=== PATIENT | female | born 1960 | race Two or more races ===

== ENCOUNTER 2025-04-07 12:25 | Inpatient (IN) | payer MEDICAID, OTHER ==
[~2025-04-07] VITALS: Ht 165.1 cm; Wt 72.6 kg
--- NOTE | 2025-04-07 13:19 | ED.PDOC ---
History of Present Illness HPI Comments 64 y/o Farsi-speaking F is BIBA with son and daughter from private residence for c/c nonradiating, left sided chest pain, shortness of breath, generalized weakness, and paleness. Per EMS reports, patient endorses on sudden, unprovoked, and atraumatic onset of symptoms, while taking a shower, this morning, at around 1100 prior to calling son and daughter for assistance. Pain was reported to have been sharp in quality and a 10/10 in severity prior to improving to a 5/10 after being given 324mg ASA by son prior to EMS arrival. Significant history of HLD and HTN. No endorsement of any recent known sick contact, prior ailments, travel, medication changes, or further pertinent history or events, with the exception of previous hospital visit in [place] on 04/02/25 for chest pain; findings from said visit was commented to have been benign prior to discharging the patient. Patient denies on having any cough, congestion, nausea, vomiting, fever, chills, or further associated symptoms. Chief Complaint: Chest Pain Time Seen by MD: 12:40 Reviewed Notes: Nurses Notes, Recessing Machine Operator Notes, Medications, Allergies Allergies: Coded Allergies: NO KNOWN ALLERGIES (Unverified , 04/07/25) Information Source: Patient, Relative, Emergency Med Personnel Mode of Arrival: EMS Severity: Moderate Timing: Hours Duration: Since onset Prehospital treatment: 12 Lead EKG, Analytical Chemist Past Medical History PAST MEDICAL HISTORY: High Lipids, HTN Surgical History: Denies all surgeries PERSONNEL ASSOCIATE History: Denies all PERSONNEL ASSOCIATE Hx Family History Family History: Unknown Social History Smoker: Non-Smoker Alcohol: Denies ETOH Use Drugs: Denies Drug Use Lives In: Home All Other Systems: Reviewed and Negative (Comprehensive review of systems are negative unless otherwise stated in HPI) Physical Exam General Appearance: Moderate Distress HEENT: Normal ENT Inspection, Pharynx Normal, TMs Normal Neck: Full Range of Motion, Non-Tender, Normal, Normal Inspection Respiratory: Chest Non-Tender, Lungs Clear, No Accessory Muscle Use, No Respiratory Distress, Normal Breath Sounds Cardiovascular: No Edema, No JVD, No Murmur, No Gallop, Normal Peripheral Pulses, Regular Rate/Rhythm Breast Exam: Deferred Gastrointestinal: No Organomegaly, Non Tender, No Pulsatile Mass, Normal Bowel Sounds, Soft Genitalia: Deferred Pelvic: Deferred Rectal: Deferred Extremities: No calf tenderness, Normal capillary refill, Normal inspection, Normal range of motion, Non-tender, No pedal edema Musculoskeletal : Apperance: Normal Neurologic: Alert, malt liquors sales representative II-XII nml as Tested, No Motor Deficits, Normal Affect, Normal Mood, No Sensory Deficits Cerebellar Function: NOT DONE Reflexes: NOT DONE Skin: Dry, Normal Color, Warm Peripheral Pulses: 3+ Radial (R), 3+ Radial (L) Lymphatic: No Adenopathy Was a procedure done? Was a procedure done?: No EKG EKG : Pulse Rate (adult): 72 [place]: Normal Cardiac Rhythm: NSR Block: None Hypertrophy: None ST: Normal Differential Dx Considerations may include: DC, PE, ACS, URI, pneumonia, angina, anxiety, gastritis, among others X-Ray, Labs, Meds, VS Vital Signs Date Time Temp Pulse Resp B/P (MAP) Pulse Ox O2 Delivery O2 Flow Rate FiO2 04/07/25 13:19 72 04/07/25 12:30 98.0 67 16 131/78 98 98.0 04/07/25 12:26 72 Lab Test 04/07/25 14:29 04/07/25 14:27 04/07/25 13:03 Range/Units Troponin I High Sensitivity 211 *H 172 *H </=34 ng/L POC Glucose 150 H 70-106 mg/dl White Blood Count 5.6 4.4-10.8 10^3/uL Red Blood Count 4.43 4.0-5.20 10^6/uL Hemoglobin 12.8 12.2-16.2 g/dL Hematocrit 38.5 36.0-46.0 % Mean Corpuscular Volume 86.9 80.0-100.0 fL Mean Corpuscular Hemoglobin 28.8 28.0-32.0 pg Mean Corpuscular Hemoglobin Concent 33.2 32.0-36.0 g/dL Red Cell Distribution Width 13.6 11.8-14.3 % Platelet Count 254 140-450 10^3/uL Mean Platelet Volume 9.3 6.9-10.8 fL Neutrophils (%) (Auto) 75.8 37.0-80.0 % Lymphocytes (%) (Auto) 18.2 10.0-50.0 % Monocytes (%) (Auto) 4.8 0.0-12.0 % Eosinophils (%) (Auto) 0.9 0.0-7.0 % Basophils (%) (Auto) 0.3 0.0-2.0 % Neutrophils # (Auto) 4.2 1.6-8.6 10 ^3/uL Lymphocytes # (Auto) 1.0 0.4-5.4 10 ^3/uL Monocytes # (Auto) 0.3 0-1.3 10 ^3/uL Eosinophils # (Auto) 0 0-0.8 10 ^3/uL Basophils # (Auto) 0 0-0.2 10 ^3/uL Nucleated Red Blood Cells 0.1 % Sodium Level 141 136-145 mmol/L Potassium Level 4.0 3.5-5.1 mmol/L Chloride Level 106 98-107 mmol/L Carbon Dioxide Level 24 20-31 mmol/L Anion Gap 11 5-15 Blood Urea Nitrogen 11 9-23 mg/dL Creatinine 0.77 0.550-1.02 mg/dL Glomerular Filtration Rate Calc 85 >90 mL/min BUN/Creatinine Ratio 14.3 10.0-20.0 Serum Glucose 154 H 74-106 mg/dL Calcium Level 9.4 8.7-10.4 mg/dL Current Medications Medications (Trade) Dose Ordered Sig/Dwight Route Start Time Stop Time Status Last Admin Sodium Chloride 1,000 ml @ 1,000 mls/hr Q1H ONCE IV 04/07/25 13:00 04/07/25 13:59 DC 04/07/25 14:30 Patient alert. Came in because of dizziness. No neurological deficits. Vitals stable. Cardiac marker elevated. EKG reviewed does not show any acute changes. Blood sugar elevated. Reviewed her notes from her previous visit at [facility]. Establish intravenous access. Was given fluids. Was given Lovenox. Explained to the patient. Continue monitoring. Time of 1ST Reevaluation: 16:14 Reevaluation 1ST: Improved Patient Education/Counseling: Diagnosis, Treatment Family Education/Counseling: Diagnosis, Treatment SEPSIS Sepsis Screen Date sepsis recognized/suspect: Apr 07, 2025 Time Sepsis recognized/suspect: 1229 Recent Procedure: No On Antibiotic Therapy: No Respiratory Rate >20: No Heart Rate >90: No Temp<36 C (96.8 F) or >38.3 C: No SBP <90 or MAP <65 mmHG: No New Acute Mental Status Change: No Is the patient on CPAP, BIPAP,: No Physician Orders Electrocardigram (04/07/25 12:45) Electrocardigram (04/07/25 13:45) Electrocardigram (04/07/25 15:45) Urinalysis (04/07/25 12:47) Troponin-I Hs (04/07/25 15:47) Vital Signs Date Time Temp Pulse Resp B/P (MAP) Pulse Ox O2 Delivery O2 Flow Rate FiO2 04/07/25 13:19 72 04/07/25 12:30 98.0 67 16 131/78 98 98.0 04/07/25 12:26 72 Laboratory Tests Test 04/07/25 13:03 White Blood Count 5.6 10^3/uL (4.4-10.8) Medications Medications Dose Ordered Sig/Dwight Route Start Time Stop Time Status Last Admin Dose Admin Sodium Chloride 1,000 ml @ 1,000 mls/hr Q1H ONCE IV 04/07/25 13:00 04/07/25 13:59 DC 04/07/25 14:30 Departure 1 Departure Time of Disposition: 16:15 Impression: Primary Impression: Uncontrolled diabetes mellitus Qualified Codes: E13.65 - Other specified diabetes mellitus with hyperglycemia Additional Impression: Demand ischemia Disposition: ADMITTED INPATIENT Admit to: Med Surg Condition: Guarded Critical Care Note Critical Care Time?: Yes (90 min-critical care time only) Stability Stability form required: No Heart Score Heart Score: Heart Score Response (Comments) Value History Slightly Suspicious 0 EKG Normal 0 Age >65 2 Risk Factors 1 or 2 risk factors 1 Troponin >3 x's Normal limit 2 Total 5 I personally scribed for AJAY MCDOWELL MD ([email or web address]) on 04/07/25 at 13:19. Electronically submitted by Nii Howard ([email or web address]). AJAY MCDOWELL MD Apr 07, 2025 13:19
[2025-04-07 14:03] LABS: Hematocrit 38.5 % (36.0-46.0); Hemoglobin 12.8 g/dL (12.2-16.2); Mean Corpuscular Hemoglobin 28.8 pg (28.0-32.0); Mean Corpuscular Volume 86.9 fL (80.0-100.0); Nucleated Red Blood Cells % 0.1 %
[2025-04-07 14:12] LABS: Chloride 106 mmol/L (98-107); Potassium 4.0 mmol/L (3.5-5.1); Sodium 141 mmol/L (136-145)
[2025-04-07 14:13] LABS: Anion Gap 11 (5-15); Calcium 9.4 mg/dL (8.7-10.4); Carbon Dioxide 24 mmol/L (20-31)
[2025-04-07 14:18] LABS: BUN/Creatinine Ratio 14.3 (10.0-20.0); Blood Urea Nitrogen 11 mg/dL (9-23)
[2025-04-07 14:27] LABS: Glucose 154 mg/dL (74-106)
[2025-04-07] MEDS: SODIUM CHLORIDE 0.9% 1,000 ML IV ONE (14:30)
[2025-04-07] MEDS: ENOXAPARIN SOD 80 MG/0.8ML SYRINGE SC ONE (16:40)
[2025-04-07 16:47] VITALS: PULSE 74; RESP 20; O2SAT 94
[2025-04-07 20:22] VITALS: PULSE 80; RESP 20; O2SAT 97
[2025-04-07] MEDS ORDERED: HYDROcodone-ACET 5/325MG TAB PO PRN (21:30)
[2025-04-07] MEDS ORDERED: DEXTROSE (50%) 50ML SYRG IV PRN (21:30)
[2025-04-07] MEDS ORDERED: DOCUSATE SOD 100 MG CAP PO PRN (21:30)
[2025-04-07] MEDS ORDERED: ACETAMINOPHEN 325 MG TAB PO PRN (21:30)
[2025-04-07] MEDS ORDERED: hydrALAZINE HCL 20 MG/ML VL IV PRN (21:30)
[2025-04-07] MEDS ORDERED: ONDANSETRON HCL 4 MG/2 ML VIAL IV PRN (21:30)
[2025-04-07] MEDS: ATORVASTATIN 20 MG TAB PO SCH (22:00)
[2025-04-07] MEDS: SODIUM CHLOR 0.9% PF (SALINE LOCK) 10ML VIAL/SYR IV SCH (22:00)
[2025-04-07] MEDS: METOPROLOL TARTRATE 25 MG TAB PO SCH (22:00)
--- NOTE | 2025-04-07 22:06 | DVHHP2 ---
History of Present Illness Reason for Visit: Acute chest pain History of Present Illness The patient is a 64-year-old female with past medical history of hypertension and hyperlipidemia who presented to [facility] ED with complaint of chest pain. Patient reports she has been experiencing sudden left-sided chest pa in, rating 10/10 numeric scale, sharp sensation, associated with generalized weakness, shortness of breaths, paleness, getting worse that prompted this visit. Patient was seen and evaluated in the ED, laboratory data shows WBC 5.6, platelets 254, sodium 141, potassium 4.0, BUN 11, creatinine 0.77, GFR 85, glucose 154, calcium 9.4, troponin 172 trending up, blood pressure 135/77, heart rate 80, temperature 98.1 F, O2 saturation 97% on room air. Please see medication orders section in the computer. On my assessment, patient denies chest pain at this moment, no cough, no congestion, no nausea, no vomiting, fever, chills, or further associated symptoms. Patient was admitted for further evaluation and medical management. Past Medical History High Lipids, HTN, DM Past Surgical History Denies all surgeries Family History Reviewed, noncontributory to the management of this case. Past Social History The patient lives at home, denies smoking, alcohol or illicit drugs abuse. Review of Systems Constitutional: Yes: Weakness; No: Fever, Chills, Sweats, Malaise, Other Eyes: No: Pain, Vision change, Conjunctivae inflammation, Eyelid inflammation, Other, Redness ENT: No: Ear pain, Ear discharge, Nose pain, Nose discharge, Nose congestion, Mouth pain, Mouth swelling, Throat pain, Throat swelling, Other Respiratory: No: Cough, Dry, Shortness of breath, SOB with excertion, Wheezing, Hemoptysis, Pleuritic Pain, Sputum, Wheezing, Other Cardiovascular: Chest Pain; No: Palpitations, Orthopnea, Paroxysmal Noc. Dyspnea, Edema, Lt Headedness, Other Gastrointestinal: No: Nausea, Vomiting, Abdominal Pain, Diarrhea, Constipation, Melena, Hematochezia, Other Genitourinary: No Dysuria, No Frequency, No Incontinence, No Hematuria, No Retention, No Other Musculoskeletal: No: other, neck pain, shoulder pain, arm pain, back pain, hand pain, leg pain, foot pain Skin: No: Rash, Lesions, Jaundice, Bruising, Other Neurological: No: Weakness, Numbness, Incoordination, Change in speech, Confusion, Seizures, Other Allergies: Coded Allergies: NO KNOWN ALLERGIES (Unverified , 04/07/25) Medications Current Medications Medications Dose Ordered Sig/Dwight Route Start Time Stop Time Status Last Admin Dose Admin Atorvastatin Calcium 40 mg HS PO 04/07/25 22:00 Enoxaparin Sodium 80 mg Q12HR SC 04/08/25 10:00 Diagnostic Test (Pha) 1 strip IQ4HR 04/08/25 00:00 Insulin Human Regular IQ4HR SC 04/08/25 00:00 Dextrose 50 ml UD PRN IV 04/07/25 21:30 Sodium Chloride 10 ml Q8HR IV 04/07/25 22:00 Acetaminophen/ Hydrocodone Bitart 1 tab Q4HP PRN PO 04/07/25 21:30 Ondansetron HCl 4 mg Q4HP PRN IV 04/07/25 21:30 Docusate Sodium 100 mg BIDPRN PRN PO 04/07/25 21:30 Acetaminophen 650 mg Q6HP PRN PO 04/07/25 21:30 Metoprolol Tartrate 25 mg BID PO 04/07/25 22:00 Hydralazine HCl 10 mg Q6HP PRN IV 04/07/25 21:30 Exam Vital Signs Vital Signs Date Time Temp Pulse Resp B/P (MAP) Pulse Ox O2 Delivery O2 Flow Rate FiO2 04/07/25 20:22 98.1 80 20 135/77 (96) 97 98.1 04/07/25 20:22 Room Air* 0 21 General Appearance: Alert, Oriented X3, Cooperative, No acute distress HEENT: Atraumatic, PERRLA, EOMI, Mucous membr. moist/pink Respiratory: Normal air movement Cardiovascular: Regular rate, Normal S1, Normal S2, No murmurs Abdominal: Normal bowel sounds, Soft, No tenderness, No hepatospenomegaly, No masses Extremities: No clubbing, No cyanosis, No edema, Normal pulses, No tenderness/swelling Skin: No rashes, No significant lesion Neuro: Normal speech, Normal tone, Sensation intact, Cranial nerves 3-12 NL, Reflexes 2+, Other (Generalized weakness) Psych/Mental Status: Mental status NL, Mood NL Labs/Xrays Labs Test 04/07/25 21:34 04/07/25 14:27 04/07/25 13:03 Range/Units Troponin I High Sensitivity 255 *H </=34 ng/L POC Glucose 150 H 70-106 mg/dl White Blood Count 5.6 4.4-10.8 10^3/uL Red Blood Count 4.43 4.0-5.20 10^6/uL Hemoglobin 12.8 12.2-16.2 g/dL Hematocrit 38.5 36.0-46.0 % Mean Corpuscular Volume 86.9 80.0-100.0 fL Mean Corpuscular Hemoglobin 28.8 28.0-32.0 pg Mean Corpuscular Hemoglobin Concent 33.2 32.0-36.0 g/dL Red Cell Distribution Width 13.6 11.8-14.3 % Platelet Count 254 140-450 10^3/uL Mean Platelet Volume 9.3 6.9-10.8 fL Neutrophils (%) (Auto) 75.8 37.0-80.0 % Lymphocytes (%) (Auto) 18.2 10.0-50.0 % Monocytes (%) (Auto) 4.8 0.0-12.0 % Eosinophils (%) (Auto) 0.9 0.0-7.0 % Basophils (%) (Auto) 0.3 0.0-2.0 % Neutrophils # (Auto) 4.2 1.6-8.6 10 ^3/uL Lymphocytes # (Auto) 1.0 0.4-5.4 10 ^3/uL Monocytes # (Auto) 0.3 0-1.3 10 ^3/uL Eosinophils # (Auto) 0 0-0.8 10 ^3/uL Basophils # (Auto) 0 0-0.2 10 ^3/uL Nucleated Red Blood Cells 0.1 % Sodium Level 141 136-145 mmol/L Potassium Level 4.0 3.5-5.1 mmol/L Chloride Level 106 98-107 mmol/L Carbon Dioxide Level 24 20-31 mmol/L Anion Gap 11 5-15 Blood Urea Nitrogen 11 9-23 mg/dL Creatinine 0.77 0.550-1.02 mg/dL Glomerular Filtration Rate Calc 85 >90 mL/min BUN/Creatinine Ratio 14.3 10.0-20.0 Serum Glucose 154 H 74-106 mg/dL Hemoglobin A1c 5.9 H <5.7 % A1C Calcium Level 9.4 8.7-10.4 mg/dL SEPSIS Sepsis Screen Date sepsis recognized/suspect: Apr 07, 2025 Time Sepsis recognized/suspect: 2029 Recent Procedure: No On Antibiotic Therapy: No Respiratory Rate >20: No Heart Rate >90: No Temp<36 C (96.8 F) or >38.3 C: No SBP <90 or MAP <65 mmHG: No New Acute Mental Status Change: No Is the patient on CPAP, BIPAP,: No Physician Orders Atorvastatin (Lipitor) (04/07/25 22:00) * Cardiology Consult (04/07/25 21:18) Glucose Blood (Accu-Chek Comfort Curve T (04/08/25 00:00) Insulin R (Human) (Insulin R) (04/08/25 00:00) Dextrose 50% Syringe (04/07/25 21:30) Allergies (04/07/25 21:18) Code Status (04/07/25 21:18) Sodium Chloride Lock (Saline Lock Ns) (04/07/25 22:00) Oxygen Per Hour (04/07/25 21:18) Hydrocodone-Acet 5/325mg Tab ([place] 5/32 (04/07/25 21:30) Ondansetron Hcl (Zofran) (04/07/25 21:30) Docusate Sodium Capsule (Colace Capsule) (04/07/25 21:30) Complete Blood Count (04/08/25 04:00) Comprehensive Metabolic Panel (04/08/25 04:00) Cardiac Diet-2gna,Lofat,Lochol (04/08/25 Breakfast) Condition: Serious (04/07/25 21:18) Acetaminophen Tablet (Tylenol Tablet) (04/07/25 21:30) Bedrest With Bathroom Privileg (04/07/25 21:18) Sequential Compression Device (04/07/25 ) Metoprolol Tartrate Tablet (Lopressor Ta (04/07/25 22:00) Hydralazine Injection (Apresoline Inject (04/07/25 21:30) Troponin-I Hs (04/08/25 00:23) Enoxaparin Sodium (Lovenox) (04/08/25 10:00) Vital Signs Date Time Temp Pulse Resp B/P (MAP) Pulse Ox O2 Delivery O2 Flow Rate FiO2 04/07/25 20:22 98.1 80 20 135/77 (96) 97 98.1 04/07/25 20:22 80 20 97 Room Air* 0 21 04/07/25 18:38 70 18 135/69 (91) 97 04/07/25 18:19 73 04/07/25 16:47 74 20 94 Room Air* 0 21 Laboratory Tests Test 04/07/25 13:03 White Blood Count 5.6 10^3/uL (4.4-10.8) Medications Medications Dose Ordered Sig/Dwight Route Start Time Stop Time Status Last Admin Dose Admin Enoxaparin Sodium 80 mg ONCE ONCE SC 04/07/25 16:30 04/07/25 16:31 DC 04/07/25 16:40 80 MG Sodium Chloride 1,000 ml @ 1,000 mls/hr Q1H ONCE IV 04/07/25 13:00 04/07/25 13:59 DC 04/07/25 14:30 1,000 MLS/HR Assessment/Plan Assessment/Plan Uncontrolled diabetes mellitus Demand ischemia Elevated troponin Other specified diabetes mellitus with hyperglycemia Plan 1. Admit to telemetry unit 2. Breathing treatment 3. Pain control management 4. Management of fluids and electrolytes 5. Consultation for Cardiology 6. Diagnostic tests chest x-ray 7. DVT prophylaxis-on Lovenox 8. Repeat labs CBC, CMP in a.m. 9. Continue with current medical management 10. Treatment plan discussed with patient and RN. Patient verbalized understanding. Plan discussed with: Patient, Other (RN) My Orders Orders - ELAINE DIAZ DNP Procedure Category Date Status Time Atorvastatin (Lipitor) PHA 04/07/25 In Process 22:00 * Cardiology Consult CONS 04/07/25 Transmitted 21:18 Glucose Blood PHA 04/08/25 In Process (Accu-Chek Comfort 00:00 Insulin R (Human) PHA 04/08/25 In Process (Insulin R) 00:00 Dextrose 50% Syringe PHA 04/07/25 In Process 21:30 Allergies BLADE 04/07/25 In Process 21:18 Code Status CODE 04/07/25 Transmitted 21:18 Sodium Chloride Lock PHA 04/07/25 In Process (Saline Lock Ns) 22:00 Oxygen Per Hour RT 04/07/25 Transmitted 21:18 Hydrocodone-Acet PHA 04/07/25 In Process 5/325mg Tab ([place] 21:30 Ondansetron Hcl PHA 04/07/25 In Process (Zofran) 21:30 Docusate Sodium PHA 04/07/25 In Process Capsule (Colace 21:30 Complete Blood Count LAB 04/08/25 Verified 04:00 Comprehensive LAB 04/08/25 Verified Metabolic Panel 04:00 Cardiac DIET 04/08/25 Transmitted Diet-2gna,Lofat,Lochol Breakfast Condition: Serious BLADE 04/07/25 In Process 21:18 Acetaminophen Tablet PHA 04/07/25 In Process (Tylenol Tablet) 21:30 Bedrest With Bathroom BLADE 04/07/25 In Process Privileg 21:18 Sequential BLADE 04/07/25 In Process Compression Device Metoprolol Tartrate PHA 04/07/25 In Process Tablet (Lopressor Ta 22:00 Hydralazine Injection PHA 04/07/25 In Process (Apresoline Inject 21:30 Troponin-I Hs LAB 04/08/25 Verified 00:23 Enoxaparin Sodium PHA 04/08/25 In Process (Lovenox) 10:00 Problem List: (1) Uncontrolled diabetes mellitus (2) Demand ischemia (3) Elevated troponin (4) Other specified diabetes mellitus with hyperglycemia Date of Service: Apr 07, 2025 Billing Provider: ELAINE DIAZ DNP Common Visit Codes: [id number] INP/OBS CARE (HIGH) ELAINE DIAZ DNP Apr 07, 2025 22:06
[2025-04-07] MEDS ORDERED: MORPHINE SULFATE INJ 2 MG/ml SYRG IV PRN (22:15)
[2025-04-07] MEDS ORDERED: NITROGLYCERIN 0.4 MG SL TAB SL PRN (22:15)
[2025-04-08] VITALS (9 sets, daily range): BP systolic 118–140; BP diastolic 55–83; PULSE 59–72; RESP 17–18; TEMP 97.6–97.9; O2SAT 94–97
[2025-04-08] MEDS: InsuLIN REG 1unit/0.01ml Soln (100units/ml) SC SCH
[2025-04-08] MEDS: ACCU-CHEK COMFORT CURVE STRIP VI SCH (00:18)
[2025-04-08] MEDS ORDERED: ATOR40TA52 PO (02:15)
[2025-04-08] MEDS ORDERED: ASPI81CH74 PO (02:15)
[2025-04-08] MEDS ORDERED: AMLO1TAB22 PO (02:15)
[2025-04-08 04:10] LABS: Urine Protein, UAD Negative (Negative)
[2025-04-08 05:45] LABS: Hematocrit 34.4 % (36.0-46.0); Hemoglobin 12.1 g/dL (12.2-16.2); Mean Corpuscular Hemoglobin 29.6 pg (28.0-32.0); Mean Corpuscular Volume 84.6 fL (80.0-100.0); Nucleated Red Blood Cells % 0.1 %
[2025-04-08 05:58] LABS: Alanine Aminotransferase 18 U/L (7-40); Albumin 4.1 g/dL (3.2-4.8); Alkaline Phosphatase 60 U/L (46-116); Anion Gap 11 (5-15); BUN/Creatinine Ratio 10.5 (10.0-20.0); Calcium 9.3 mg/dL (8.7-10.4); Carbon Dioxide 24 mmol/L (20-31); Glucose 103 mg/dL (74-106); Potassium 3.9 mmol/L (3.5-5.1); Sodium 143 mmol/L (136-145); Total Protein 6.7 g/dL (5.7-8.2)
[2025-04-08 05:59] LABS: Bilirubin, Total 0.4 mg/dL (0.2-1.0)
[2025-04-08 06:09] LABS: Blood Urea Nitrogen 8 mg/dL (9-23); Chloride 108 mmol/L (98-107)
[2025-04-08] MEDS: ENOXAPARIN SOD 80 MG/0.8ML SYRINGE SC SCH (09:47)
--- NOTE | 2025-04-08 10:07 | DVHINCON2 ---
Date Seen: Apr 08, 2025 Referring Physician Rose Reason for Consultation Chest Pain, Positive troponins History of Present Illness 64-year-old female with PMH for HTN and HLD presents to the hospital with chest pain. Patient states that symptoms started approximately 1 week prior in [place] playing volleyball with family member and started having some chest pain ended up being admitted to [facility] for which per family endorses patient underwent full cardiac workup with EKG echo and coronary angiogram. Patient was cleared cardiac peterson and came back home. Apparently patient was in the shower when she again felt symptoms of chest pain some shortness of breath and came to the hospital. Upon evaluation patient found to have elevated troponins trending 172, 211, 394, 255, 161. EKG reviewed and shows sinus rhythm at 72 beats per minute with anterolateral T-wave abnormality. Denies any palpitations, fevers, nausea, vomiting, or illnesses. Past Medical History As stated above Past Surgical History Endorses coronary angiogram 04/03/2025 with nno obstructive CAD Family History: CABG G8 MOTHER, G8 BROTHER FH: prostate carcinoma G8 FATHER, FH: total abdominal hysterectomy and bilateral salpingo-oophorectomy 17 CHILD Social History Denies alcohol, tobacco, or illicit drug Allergies: Coded Allergies: NO KNOWN ALLERGIES (Unverified , 04/07/25) Home Meds Reported Medications Aspirin (Aspirin 81 Low Dose) 81 Mg Chw, 81 MG PO DAILY, TAB.CHEW 04/08/25 Amlodipine Besylate (Amlodipine Besylate) 5 Mg Tab, 2.5 MG PO DAILY for 30 Days, MG 04/08/25 Atorvastatin Calcium (ATORVASTATIN CALCIUM) 40 Mg Tab, 40 TAB PO DAILY, #30 TAB 5 Refills 04/08/25 Current Medications Current Medications Medications (Trade) Dose Ordered Sig/Dwight Route PRN Reason Start Time Stop Time Status Last Admin Atorvastatin Calcium (Lipitor) 40 mg HS PO 04/07/25 22:00 04/07/25 22:00 Enoxaparin Sodium (Lovenox) 80 mg Q12HR SC 04/08/25 10:00 04/08/25 09:47 Diagnostic Test (Pha) (Accu-Chek Comfort Curve T) 1 strip IQ4HR 04/08/25 00:00 04/08/25 00:18 Insulin Human Regular (InsuLIN R) IQ4HR SC 04/08/25 00:00 Dextrose 50 ml UD PRN IV Blood Sugar LESS THAN 60 04/07/25 21:30 Sodium Chloride (Saline Lock Ns) 10 ml Q8HR IV 04/07/25 22:00 04/08/25 05:31 Acetaminophen/ Hydrocodone Bitart ([place] 5/325MG Tab) 1 tab Q4HP PRN PO MODERATE PAIN (4-6 PAIN SCALE) 04/07/25 21:30 Ondansetron HCl (Zofran) 4 mg Q4HP PRN IV NAUSEA / VOMITING 04/07/25 21:30 Docusate Sodium (Colace Capsule) 100 mg BIDPRN PRN PO FOR CONSTIPATION 04/07/25 21:30 Acetaminophen (Tylenol Tablet) 650 mg Q6HP PRN PO PAIN SCALE 1-3 OR TEMP>100.4 04/07/25 21:30 Metoprolol Tartrate (Lopressor Tablet) 25 mg BID PO 04/07/25 22:00 04/08/25 09:48 Hydralazine HCl (Apresoline Injection) 10 mg Q6HP PRN IV SBP>150 04/07/25 21:30 Nitroglycerin (Ntrostat Sublingual) 0.4 mg Q5MINP PRN SL FOR CHEST PAIN 04/07/25 22:15 Morphine Sulfate 2 mg Q30M PRN IV FOR CHEST PAIN 04/07/25 22:15 Review of Systems Constitutional: No: Fever, Chills, Sweats, Weakness, Malaise, Other Eyes: No: Pain, Vision change, Conjunctivae inflammation, Eyelid inflammation, Other, Redness ENT: No: Ear pain, Ear discharge, Nose pain, Nose discharge, Nose congestion, Mouth pain, Mouth swelling, Throat pain, Throat swelling, Other Respiratory: No: Cough, Dry, Shortness of breath, SOB with exertion, Wheezing, Hemoptysis, Pleuritic Pain, Sputum, Wheezing, Other Cardiovascular: ; No: Chest Pain Palpitations, Orthopnea, Paroxysmal Noc. Dyspnea, Edema, Lt Headedness, Other Gastrointestinal: No: Nausea, Vomiting, Abdominal Pain, Diarrhea, Constipation, Melena, Hematochezia, Other Genitourinary: No Dysuria, No Frequency, No Incontinence, No Hematuria, No Retention, No Other Musculoskeletal: neck pain; No: other, shoulder pain, arm pain, back pain, hand pain, leg pain, foot pain Skin: No: Rash, Lesions, Jaundice, Bruising, Other Neurological: Other (Dizziness, headache.); No: Weakness, Numbness, Incoo rdination, Change in speech, Confusion, Seizures Vital Signs Vital Signs Date Time Temp Pulse Resp B/P (MAP) Pulse Ox O2 Delivery O2 Flow Rate FiO2 04/08/25 09:48 69 129/72 04/08/25 09:00 97.6 18 96 97.6 04/08/25 00:54 Room Air* 0 21 Physical Exam General appearance: Patient is well-developed, well-nourished, in no acute distress. HEENT: Exam shows: Normocephalic, atraumatic, PERRLA, EOMI Neck: Supple, no bruits Chest: Equal chest excursion bilaterally. Breath sounds normal-no rales or wheezes. Heart: Rhythm: Regular rate; no murmur or gallop Abdomen: Exam shows: Soft, nontender, nondistended Musculoskeletal: No clubbing, no cyanosis, no lower extremity edema Dermatology: Skin warm, moist. Neurological: Exam shows: Alert and oriented x4, normal speech Available prior records, labs, EKG, rhythm strips reviewed and interpreted Labs/Diagnostic Data Labs Test 04/08/25 04:29 04/08/25 03:00 04/08/25 00:42 04/07/25 14:27 Range/Units White Blood Count 5.2 4.4-10.8 10^3/uL Red Blood Count 4.07 4.0-5.20 10^6/uL Hemoglobin 12.1 L 12.2-16.2 g/dL Hematocrit 34.4 #L 36.0-46.0 % Mean Corpuscular Volume 84.6 80.0-100.0 fL Mean Corpuscular Hemoglobin 29.6 28.0-32.0 pg Mean Corpuscular Hemoglobin Concent 35.0 32.0-36.0 g/dL Red Cell Distribution Width 13.0 11.8-14.3 % Platelet Count 236 140-450 10^3/uL Mean Platelet Volume 9.2 6.9-10.8 fL Neutrophils (%) (Auto) 52.8 37.0-80.0 % Lymphocytes (%) (Auto) 37.4 10.0-50.0 % Monocytes (%) (Auto) 7.4 0.0-12.0 % Eosinophils (%) (Auto) 2.0 0.0-7.0 % Basophils (%) (Auto) 0.4 0.0-2.0 % Neutrophils # (Auto) 2.8 1.6-8.6 10 ^3/uL Lymphocytes # (Auto) 2.0 0.4-5.4 10 ^3/uL Monocytes # (Auto) 0.4 0-1.3 10 ^3/uL Eosinophils # (Auto) 0.1 0-0.8 10 ^3/uL Basophils # (Auto) 0 0-0.2 10 ^3/uL Nucleated Red Blood Cells 0.1 % Sodium Level 143 136-145 mmol/L Potassium Level 3.9 3.5-5.1 mmol/L Chloride Level 108 H 98-107 mmol/L Carbon Dioxide Level 24 20-31 mmol/L Anion Gap 11 5-15 Blood Urea Nitrogen 8 L 9-23 mg/dL Creatinine 0.76 0.550-1.02 mg/dL Glomerular Filtration Rate Calc 86 >90 mL/min BUN/Creatinine Ratio 10.5 10.0-20.0 Serum Glucose 103 74-106 mg/dL Calcium Level 9.3 8.7-10.4 mg/dL Total Bilirubin 0.4 0.2-1.0 mg/dL Aspartate Amino Transferase (AST) 17 13-40 U/L Alanine Aminotransferase (ALT) 18 7-40 U/L Alkaline Phosphatase 60 46-116 U/L Total Protein 6.7 5.7-8.2 g/dL Albumin 4.1 3.2-4.8 g/dL Urine Color Light-yellow Yellow Urine Clarity Clear Clear Urine pH 6.0 5.0-9.0 Urine Specific [place] 1.017 1.001-1.035 Urine Protein Negative Negative Urine Ketones Negative Negative Urine Blood 1+ H Negative /uL Urine Nitrite Negative Negative Urine Bilirubin Negative Negative Urine Urobilinogen Normal Negative mg/dL Urine Leukocyte Esterase Negative Negative /uL Urine RBC 10 0 - 4 /hpf Urine Microscopic WBC 11 H 0-5 /HPF Urine Squamous Epithelial Cells Few <5 /hpf Urine Bacteria None seen None Seen /hpf Urine Glucose Normal Normal mg/dL Troponin I High Sensitivity 161 *H </=34 ng/L POC Glucose 150 H 70-106 mg/dl Test 04/07/25 13:03 Range/Units Hemoglobin A1c 5.9 H <5.7 % A1C Assessment * Chest pain, positive troponin - likely demand ischemia. EKG with T-wave abnormality anterolaterally. Continue aspirin and statin. Given patient endorses having recent angiogram with no obstructive CAD recommend continue medical management at this time, blood pressure control. Will repeat echo. * HTN - continue home dose amlodipine, continue trending. * HLD - statin Case Discussed with Dr Aguiar. Continue medical management for now, check echo. Critical care, time spent: 40 minutes This medical document was created using an electronic medical record system with voice recognition software and computerized dictation system. Although this document has been carefully reviewed, there might still be some phonetic and typographical errors. Occasional wrong-word or ``sound-alike substitutions may have occurred due to the inherent limitations of voice recognition software. These areas are purely typographical due to imperfections of the software programs and do not reflect any compromise in the patient's medical care. Please read the chart carefully and recognize, using context, where these substitutions have occurred. Thank you for allowing me to participate in the management of this patient. The treatment plan was discussed with and agreed upon by patient/family including requesting consultants and ordering of imaging/procedures. Plan discussed with: Patient, Son NYHA Physical activity limitations: Class2(Slight)fatigue,sob Date of Service: Apr 08, 2025 Billing Provider: CHRISTINA GUTIERRES Cardiology Common Codes: 58232-[id number] INP/OBS CARE (High), [id number] CARE 30-74 MIN CHRISTINA GUTIERRES Apr 08, 2025 10:07
--- NOTE | 2025-04-08 11:16 | DVHPN2 ---
Subjective The patient is seen and examined at bedside. Still complain of chest pain. Reviewed: Care Plan, H&P, Labs, Medications, Previous Orders, Radiology Changes from previous H/P or p: No Changes Eyes: No Pain, No Vision change, No Conjunctivae inflammation, No Eyelid inflammation, No Other, No Redness ENT: No Ear pain, No Ear discharge, No Nose pain, No Nose discharge, No Nose congestion, No Mouth pain, No Mouth swelling, No Throat pain, No Throat swelling, No Other Cardiovascular: Chest Pain; No Palpitations, No Orthopnea, No Paroxysmal Noc. Dyspnea, No Edema, No Lt Headedness, No Other Respiratory: No Cough, No Dry, No Shortness of breath, No SOB with excertion, No Wheezing, No Hemoptysis, No Pleuritic Pain, No Sputum, No Other Gastrointestinal: No Nausea, No Vomiting, No Abdominal Pain, No Diarrhea, No Constipation, No Melena, No Hematochezia, No Other Genitourinary: No Dysuria, No Frequency, No Incontinence, No Hematuria, No Retention, No Other Musculoskeletal: No other, No neck pain, No shoulder pain, No arm pain, No back pain, No hand pain, No leg pain, No foot pain Skin: No Rash, No Lesions, No Jaundice, No Bruising, No Other Objective Vitals Vital Signs Date Time Temp Pulse Resp B/P (MAP) Pulse Ox O2 Delivery O2 Flow Rate FiO2 04/08/25 09:48 69 129/72 04/08/25 09:00 97.6 18 96 97.6 04/08/25 00:54 Room Air* 0 21 Intake/Output Intake and Output 04/08/25 07:00 Intake Total 1300 ml Balance 1300 ml Intake Oral 300 ml IV Total 1000 ml # Voids 2 # Bowel Movements 1 General Appearance: Alert, Oriented X3, Cooperative, No acute distress HEENT: Atraumatic, PERRLA, EOMI, Mucous membr. moist/pink Neck: Supple Lungs: Clear to auscultation, Normal air movement Cardiovascular: Regular rate, Normal S1, Normal S2, No murmurs, Gallops, Rubs Neuro: Cranial nerves 3-12 NL Psych/Mental Status: Mental status NL Medications Current Medications Medications Dose Ordered Sig/Dwight Route Start Time Stop Time Status Last Admin Dose Admin Atorvastatin Calcium 40 mg HS PO 04/07/25 22:00 04/07/25 22:00 40 MG Enoxaparin Sodium 80 mg Q12HR SC 04/08/25 10:00 04/08/25 09:47 80 MG Diagnostic Test (Pha) 1 strip IQ4HR 04/08/25 00:00 04/08/25 00:18 1 STRIP Insulin Human Regular IQ4HR SC 04/08/25 00:00 Dextrose 50 ml UD PRN IV 04/07/25 21:30 Sodium Chloride 10 ml Q8HR IV 04/07/25 22:00 04/08/25 05:31 10 ML Acetaminophen/ Hydrocodone Bitart 1 tab Q4HP PRN PO 04/07/25 21:30 Ondansetron HCl 4 mg Q4HP PRN IV 04/07/25 21:30 Docusate Sodium 100 mg BIDPRN PRN PO 04/07/25 21:30 Acetaminophen 650 mg Q6HP PRN PO 04/07/25 21:30 Hydralazine HCl 10 mg Q6HP PRN IV 04/07/25 21:30 Nitroglycerin 0.4 mg Q5MINP PRN SL 04/07/25 22:15 Morphine Sulfate 2 mg Q30M PRN IV 04/07/25 22:15 Amlodipine Besylate 5 mg DAILY PO 04/09/25 10:00 UNV Laboratory Results Laboratory Tests 04/08/25 04:29 Chemistry Test 04/07/25 13:03 04/08/25 04:29 Calcium Level 9.4 mg/dL (8.7-10.4) 9.3 mg/dL (8.7-10.4) Albumin 4.1 g/dL (3.2-4.8) Total Protein 6.7 g/dL (5.7-8.2) LFT Test 04/08/25 04:29 Alanine Aminotransferase (ALT) 18 U/L (7-40) Alkaline Phosphatase 60 U/L (46-116) Aspartate Amino Transferase (AST) 17 U/L (13-40) Total Bilirubin 0.4 mg/dL (0.2-1.0) HgA1c, TSH Test 04/07/25 13:03 Hemoglobin A1c 5.9 % A1C (<5.7) H Urinalysis Test 04/08/25 03:00 Urine Color Light-yellow (Yellow) Urine Clarity Clear (Clear) Urine pH 6.0 (5.0-9.0) Urine Specific [place] 1.017 (1.001-1.035) Urine Protein Negative (Negative) Urine Ketones Negative (Negative) Urine Blood 1+ /uL (Negative) H Urine Nitrite Negative (Negative) Urine Bilirubin Negative (Negative) Urine Urobilinogen Normal mg/dL (Negative) Urine Leukocyte Esterase Negative /uL (Negative) Urine RBC 10 /hpf (0 - 4) Urine Microscopic WBC 11 /HPF (0-5) H Urine Squamous Epithelial Cells Few /hpf (<5) Urine Bacteria None seen /hpf (None Seen) Urine Glucose Normal mg/dL (Normal) Labs and/or images reviewed: Labs reviewed by me Assessment/Plan Assessment/Plan Uncontrolled diabetes mellitus with hyperglycemia Non ST-elevation [place] secondary to [place] ischemia Elevated troponin Coronary artery disease with recent history of cardiac catheterization at [place] a week ago. Continuing current management. Continuing sliding scale insulin. Appreciate Cardiology input. Waiting for 2D echo to be done. Continuing aspirin. This medical document was created using an electronic medical record system with [employer] direct computerized dictation system. Although this document has been carefully reviewed, there may still be some phonetic and typographical errors. These areas are purely typographical due to imperfections of the software programs, and do not reflect any compromise in the patient's medical care. Plan discussed with: Patient, Son Date of Service: Apr 08, 2025 Billing Provider: TIP DE LEÓN MD Common Visit Codes: [id number] INP/OBS CARE(HIGH) TIP DE LEÓN MD Apr 08, 2025 11:16
--- NOTE | 2025-04-08 19:46 | ECG ---
[facility] Test Date: 2025-04-07 Test Time: 18:19:05 Pat Name: MER GRIMALDO Department: ED Room: 0201T A Gender: F [employer] Sales: KELLY : 1960 Requested By: AJAY MCDOWELL Order Number: [id number] Reading MD: Jesus Michaud Measurements Intervals Meherrin Rate: 73 P: 73 KS: 178 QRS: 64 QRSD: 101 T: 94 QT: 365 QTc: 403 Interpretive Statements Sinus rhythm Nonspecific T abnrm, anterolateral leads Electronically Signed On 04-09-2025 14:26:10 PDT by Jesus Michaud Please click the below link to view image of tracing.
--- NOTE | 2025-04-08 20:22 | DVHSR ---
APPROVED REPORT EXAM: Two-dimensional and M-mode echocardiogram with Doppler and color Doppler. Blood Pressure: 126/83 mmHg INDICATION Chest Pain RISK FACTORS Height: 5'5", Weight: 157 DIMENSIONS LVDd3.9 (3.8-5.7cm)LA (2D)3.4 (1.9-4.0cm)Aortic Root2.6 (2.0-3.7cm) LVDs2.7 (2.5-4.0cm)LA (MM) (1.9-4.0cm)Aortic Cusp Exc1.5 (1.5-2.0cm) EF (%) 60.0 (55-70%)Rt. Atrium3.0 (1.9-4.0cm)Asc. Aorta cm IVSd1.1 (0.7-1.1cm)RV (D)3.2 (1.8-2.4cm) PWd1.0 (0.7-1.1cm) Mitral Valve MitralMitral Stenosis E wave0.91m/sMV Mean GR.mmHg A wave1.06m/sMV Peak GR.mmHg E/A ratio0.92D MVAcm2 DECEL [id number] 1/2 Timems Aortic Valve Aortic ValveAortic Stenosis V11.05m/Ekaterina Mean GR.7mmHg V21.74m/Ekaterina Peak GR.12mmHg LVOT Diameter1.8 (1.8-2.4cm)Doppler AVA1.53cm2 Pulmonic Valve V20.93m/s Tricuspid Valve TR Velocity2.31m/s [id number] Conclusion MILD LVH AND MILD LV DIASTOLIC DYSFUNCTION LV EF IS 65% NORMAL VALVES NORMAL RV FUNCTION NO EFFUSION
--- NOTE | 2025-04-08 22:47 | DVHINCON2 ---
Date Seen: Apr 08, 2025 Referring Physician Rose Reason for Consultation Chest Pain, Positive troponins History of Present Illness This is a 64-year-old female with a PMH of HTN and HLD presents to the ED with complaints of chest pain. Patient states that symptoms started approximately 1 week prior in [place] while playing volleyball with a family member and started having some chest pain and ended up being admitted to [facility] for which per family endorses patient underwent full cardiac workup with EKG, echo and coronary angiogram. Patient was cleared cardiac peterson and came back home. Apparently patient was in the shower when she again felt symptoms of chest pain some shortness of breath and came to the hospital. Upon evaluation patient found to have elevated troponins trending 172, 211, 394, 255, 161. EKG reviewed and shows sinus rhythm at 72 beats per minute with anterolateral T-wave abnormality. Patient was admitted to the hospital. I am asked to consult on this patient. Past Medical History As stated above Past Surgical History Endorses coronary angiogram 04/03/2025 with nno obstructive CAD Family History: CABG G8 MOTHER, G8 BROTHER FH: prostate carcinoma G8 FATHER, FH: total abdominal hysterectomy and bilateral salpingo-oophorectomy 17 CHILD Allergies: Coded Allergies: NO KNOWN ALLERGIES (Unverified , 04/07/25) Home Meds Reported Medications Aspirin (Aspirin 81 Low Dose) 81 Mg Chw, 81 MG PO DAILY, TAB.CHEW 04/08/25 Amlodipine Besylate (Amlodipine Besylate) 5 Mg Tab, 2.5 MG PO DAILY for 30 Days, MG 04/08/25 Atorvastatin Calcium (ATORVASTATIN CALCIUM) 40 Mg Tab, 40 TAB PO DAILY, #30 TAB 5 Refills 04/08/25 Current Medications Current Medications Medications (Trade) Dose Ordered Sig/Dwight Route PRN Reason Start Time Stop Time Status Last Admin Atorvastatin Calcium (Lipitor) 40 mg HS PO 04/07/25 22:00 04/07/25 22:00 Enoxaparin Sodium (Lovenox) 80 mg Q12HR SC 04/08/25 10:00 04/08/25 09:47 Diagnostic Test (Pha) (Accu-Chek Comfort Curve T) 1 strip IQ4HR 04/08/25 00:00 04/08/25 13:16 DC 04/08/25 00:18 Insulin Human Regular (InsuLIN R) IQ4HR SC 04/08/25 00:00 04/08/25 13:16 DC Dextrose 50 ml UD PRN IV Blood Sugar LESS THAN 60 04/07/25 21:30 04/08/25 13:16 DC Sodium Chloride (Saline Lock Ns) 10 ml Q8HR IV 04/07/25 22:00 04/08/25 05:31 Acetaminophen/ Hydrocodone Bitart ([place] 5/325MG Tab) 1 tab Q4HP PRN PO MODERATE PAIN (4-6 PAIN SCALE) 04/07/25 21:30 Ondansetron HCl (Zofran) 4 mg Q4HP PRN IV NAUSEA / VOMITING 04/07/25 21:30 Docusate Sodium (Colace Capsule) 100 mg BIDPRN PRN PO FOR CONSTIPATION 04/07/25 21:30 Acetaminophen (Tylenol Tablet) 650 mg Q6HP PRN PO PAIN SCALE 1-3 OR TEMP>100.4 04/07/25 21:30 Metoprolol Tartrate (Lopressor Tablet) 25 mg BID PO 04/07/25 22:00 04/08/25 10:07 DC 04/08/25 09:48 Hydralazine HCl (Apresoline Injection) 10 mg Q6HP PRN IV SBP>150 04/07/25 21:30 Nitroglycerin (Ntrostat Sublingual) 0.4 mg Q5MINP PRN SL FOR CHEST PAIN 04/07/25 22:15 Morphine Sulfate 2 mg Q30M PRN IV FOR CHEST PAIN 04/07/25 22:15 Amlodipine Besylate (Norvasc Tablet) 5 mg DAILY PO 04/09/25 10:00 Review of Systems Constitutional: No: Fever, Chills, Sweats, Weakness, Malaise, Other Eyes: No: Pain, Vision change, Conjunctivae inflammation, Eyelid inflammation, Other, Redness ENT: No: Ear pain, Ear discharge, Nose pain, Nose discharge, Nose congestion, Mouth pain, Mouth swelling, Throat pain, Throat swelling, Other Respiratory: No: Cough, Dry, Shortness of breath, SOB with exertion, Wheezing, Hemoptysis, Pleuritic Pain, Sputum, Wheezing, Other Cardiovascular: ; No: Chest Pain Palpitations, Orthopnea, Paroxysmal Noc. Dyspnea, Edema, Lt Headedness, Other Gastrointestinal: No: Nausea, Vomiting, Abdominal Pain, Diarrhea, Constipation, Melena, Hematochezia, Other Genitourinary: No Dysuria, No Frequency, No Incontinence, No Hematuria, No Retention, No Other Musculoskeletal: neck pain; No: other, shoulder pain, arm pain, back pain, hand pain, leg pain, foot pain Skin: No: Rash, Lesions, Jaundice, Bruising, Other Neurological: Other (Dizziness, headache.); No: Weakness, Numbness, Incoordination, Change in speech, Confusion, Seizures Vital Signs Vital Signs Date Time Temp Pulse Resp B/P (MAP) Pulse Ox O2 Delivery O2 Flow Rate FiO2 04/08/25 13:00 97.8 68 18 118/55 (76) 96 97.8 04/08/25 00:54 Room Air* 0 21 Physical Exam GENERAL: Alert and oriented x 3. No acute distress. EYES: PERRL, EOMI. Anicteric. HENT: Moist mucous membranes. LUNGS: Clear to auscultation bilaterally. CARDIOVASCULAR: Regular rate and rhythm. ABDOMEN: Soft, nontender and nondistended. EXTREMITIES: No edema. NEUROLOGIC: No focal neurological deficits. SKIN: Warm, dry. Labs/Diagnostic Data Labs Test 04/08/25 04:29 04/08/25 03:00 04/08/25 00:42 04/07/25 14:27 Range/Units White Blood Count 5.2 4.4-10.8 10^3/uL Red Blood Count 4.07 4.0-5.20 10^6/uL Hemoglobin 12.1 L 12.2-16.2 g/dL Hematocrit 34.4 #L 36.0-46.0 % Mean Corpuscular Volume 84.6 80.0-100.0 fL Mean Corpuscular Hemoglobin 29.6 28.0-32.0 pg Mean Corpuscular Hemoglobin Concent 35.0 32.0-36.0 g/dL Red Cell Distribution Width 13.0 11.8-14.3 % Platelet Count 236 140-450 10^3/uL Mean Platelet Volume 9.2 6.9-10.8 fL Neutrophils (%) (Auto) 52.8 37.0-80.0 % Lymphocytes (%) (Auto) 37.4 10.0-50.0 % Monocytes (%) (Auto) 7.4 0.0-12.0 % Eosinophils (%) (Auto) 2.0 0.0-7.0 % Basophils (%) (Auto) 0.4 0.0-2.0 % Neutrophils # (Auto) 2.8 1.6-8.6 10 ^3/uL Lymphocytes # (Auto) 2.0 0.4-5.4 10 ^3/uL Monocytes # (Auto) 0.4 0-1.3 10 ^3/uL Eosinophils # (Auto) 0.1 0-0.8 10 ^3/uL Basophils # (Auto) 0 0-0.2 10 ^3/uL Nucleated Red Blood Cells 0.1 % Sodium Level 143 136-145 mmol/L Potassium Level 3.9 3.5-5.1 mmol/L Chloride Level 108 H 98-107 mmol/L Carbon Dioxide Level 24 20-31 mmol/L Anion Gap 11 5-15 Blood Urea Nitrogen 8 L 9-23 mg/dL Creatinine 0.76 0.550-1.02 mg/dL Glomerular Filtration Rate Calc 86 >90 mL/min BUN/Creatinine Ratio 10.5 10.0-20.0 Serum Glucose 103 74-106 mg/dL Calcium Level 9.3 8.7-10.4 mg/dL Total Bilirubin 0.4 0.2-1.0 mg/dL Aspartate Amino Transferase (AST) 17 13-40 U/L Alanine Aminotransferase (ALT) 18 7-40 U/L Alkaline Phosphatase 60 46-116 U/L Total Protein 6.7 5.7-8.2 g/dL Albumin 4.1 3.2-4.8 g/dL Urine Color Light-yellow Yellow Urine Clarity Clear Clear Urine pH 6.0 5.0-9.0 Urine Specific [place] 1.017 1.001-1.035 Urine Protein Negative Negative Urine Ketones Negative Negative Urine Blood 1+ H Negative /uL Urine Nitrite Negative Negative Urine Bilirubin Negative Negative Urine Urobilinogen Normal Negative mg/dL Urine Leukocyte Esterase Negative Negative /uL Urine RBC 10 0 - 4 /hpf Urine Microscopic WBC 11 H 0-5 /HPF Urine Squamous Epithelial Cells Few <5 /hpf Urine Bacteria None seen None Seen /hpf Urine Glucose Normal Normal mg/dL Troponin I High Sensitivity 161 *H </=34 ng/L POC Glucose 150 H 70-106 mg/dl Test 04/07/25 13:03 Range/Units Hemoglobin A1c 5.9 H <5.7 % A1C Assessment Chest pain, positive troponin. HTN. HLD. Plan/Recommendation I agree with your ongoing assessment and care of plan. Patient has been seen by Sharad Flanagan NP on my behalf, him and I discussed the plan with the patient. Continue aspirin and statin. Given patient endorses having recent angiogram with no obstructive CAD recommend continue medical management at this time, blood pressure control. Will repeat echo. Continue home dose Amlodipine, continue trending. Amlodipine. DVT prophylactics. IV Hydralazine for SBP > 150. Morphine and [place] for pain management. Additional plan as per the hospital course. Plan discussed with: Patient NYHA Physical activity limitations: Class2(Slight)fatigue,sob Date of Service: Apr 08, 2025 Billing Provider: SNOW MOSS MD Cardiology Common Codes: [id number] INP/OBS CARE (High) Cardiology Consultation Codes: [id number] CONSULT <45MIN SNOW MOSS MD Apr 08, 2025 13:54
[2025-04-09 01:00] VITALS: BP 131/71; PULSE 64; RESP 19; TEMP 97.8; O2SAT 98
[2025-04-09 05:00] VITALS: BP 128/69; PULSE 56; RESP 20; TEMP 97.6; O2SAT 96
[2025-04-09 05:32] LABS: Hematocrit 36.2 % (36.0-46.0); Hemoglobin 12.5 g/dL (12.2-16.2); Mean Corpuscular Hemoglobin 29.3 pg (28.0-32.0); Mean Corpuscular Volume 85.1 fL (80.0-100.0); Nucleated Red Blood Cells % 0.0 %
[2025-04-09 05:37] LABS: Potassium 4.5 mmol/L (3.5-5.1); Sodium 141 mmol/L (136-145)
[2025-04-09 05:38] LABS: Anion Gap 7 (5-15); Carbon Dioxide 27 mmol/L (20-31)
[2025-04-09 05:39] LABS: Calcium 9.6 mg/dL (8.7-10.4); Chloride 107 mmol/L (98-107)
[2025-04-09 05:43] LABS: BUN/Creatinine Ratio 11.0 (10.0-20.0); Blood Urea Nitrogen 9 mg/dL (9-23); Glucose 98 mg/dL (74-106)
[2025-04-09 08:00] VITALS: PULSE 54; PULSE 66; RESP 18; O2SAT 96
[2025-04-09 09:00] VITALS: BP 127/59; PULSE 66; RESP 16; TEMP 98.3; O2SAT 96
[2025-04-09 10:37] LABS: Hepatitis B Surface Antigen Negative (Negative); Hepatitis C Antibody Negative (Negative)
--- NOTE | 2025-04-09 11:56 | DVHPN2 ---
Subjective The patient is seen and examined at bedside. Still complain of chest pain. Reviewed: Care Plan, H&P, Labs, Medications, Previous Orders, Radiology Eyes: No Pain, No Vision change, No Conjunctivae inflammation, No Eyelid inflammation, No Other, No Redness ENT: No Ear pain, No Ear discharge, No Nose pain, No Nose discharge, No Nose congestion, No Mouth pain, No Mouth swelling, No Throat pain, No Throat swelling, No Other Cardiovascular: Chest Pain; No Palpitations, No Orthopnea, No Paroxysmal Noc. Dyspnea, No Edema, No Lt Headedness, No Other Respiratory: No Cough, No Dry, No Shortness of breath, No SOB with excertion, No Wheezing, No Hemoptysis, No Pleuritic Pain, No Sputum, No Other Gastrointestinal: No Nausea, No Vomiting, No Abdominal Pain, No Diarrhea, No Constipation, No Melena, No Hematochezia, No Other Genitourinary: No Dysuria, No Frequency, No Incontinence, No Hematuria, No Retention, No Other Musculoskeletal: No other, No neck pain, No shoulder pain, No arm pain, No back pain, No hand pain, No leg pain, No foot pain Skin: No Rash, No Lesions, No Jaundice, No Bruising, No Other Objective Vitals Vital Signs Date Time Temp Pulse Resp B/P (MAP) Pulse Ox O2 Delivery O2 Flow Rate FiO2 04/09/25 09:00 98.3 66 16 127/59 (81) 96 98.3 04/09/25 08:00 Room Air* 0 21 Intake/Output Intake and Output 04/09/25 07:00 Intake Total 1150 ml Balance 1150 ml Intake Oral 1150 ml # Voids 5 # Bowel Movements 1 General Appearance: Alert, Oriented X3, Cooperative, No acute distress HEENT: Atraumatic, PERRLA, EOMI, Mucous membr. moist/pink Neck: Supple Lungs: Clear to auscultation, Normal air movement Cardiovascular: Regular rate, Normal S1, Normal S2, No murmurs, Gallops, Rubs Neuro: Cranial nerves 3-12 NL Psych/Mental Status: Mental status NL Medications Current Medications Medications Dose Ordered Sig/Dwight Route Start Time Stop Time Status Last Admin Dose Admin Atorvastatin Calcium 40 mg HS PO 04/07/25 22:00 04/08/25 21:28 40 MG Enoxaparin Sodium 80 mg Q12HR SC 04/08/25 10:00 04/08/25 21:29 80 MG Sodium Chloride 10 ml Q8HR IV 04/07/25 22:00 04/09/25 05:19 10 ML Acetaminophen/ Hydrocodone Bitart 1 tab Q4HP PRN PO 04/07/25 21:30 Ondansetron HCl 4 mg Q4HP PRN IV 04/07/25 21:30 Docusate Sodium 100 mg BIDPRN PRN PO 04/07/25 21:30 Acetaminophen 650 mg Q6HP PRN PO 04/07/25 21:30 Hydralazine HCl 10 mg Q6HP PRN IV 04/07/25 21:30 Nitroglycerin 0.4 mg Q5MINP PRN SL 04/07/25 22:15 Morphine Sulfate 2 mg Q30M PRN IV 04/07/25 22:15 Amlodipine Besylate 5 mg DAILY PO 04/09/25 10:00 Laboratory Results Laboratory Tests 04/09/25 04:35 Chemistry Test 04/09/25 04:35 Calcium Level 9.6 mg/dL (8.7-10.4) Urinalysis Test 04/08/25 03:00 Urine Color Light-yellow (Yellow) Urine Clarity Clear (Clear) Urine pH 6.0 (5.0-9.0) Urine Specific [place] 1.017 (1.001-1.035) Urine Protein Negative (Negative) Urine Ketones Negative (Negative) Urine Blood 1+ /uL (Negative) H Urine Nitrite Negative (Negative) Urine Bilirubin Negative (Negative) Urine Urobilinogen Normal mg/dL (Negative) Urine Leukocyte Esterase Negative /uL (Negative) Urine RBC 10 /hpf (0 - 4) Urine Microscopic WBC 11 /HPF (0-5) H Urine Squamous Epithelial Cells Few /hpf (<5) Urine Bacteria None seen /hpf (None Seen) Urine Glucose Normal mg/dL (Normal) Assessment/Plan Assessment/Plan Uncontrolled diabetes mellitus with hyperglycemia Non ST-elevation HI secondary to Demand ischemia Elevated troponin Coronary artery disease with recent history of cardiac catheterization at [facility] a week ago. Continuing current management. Continuing sliding scale insulin. Appreciate Cardiology input. Waiting for 2D echo to be done. Continuing aspirin. This medical document was created using an electronic medical record system with [employer] direct computerized dictation system. Although this document has been carefully reviewed, there may still be some phonetic and typographical errors. These areas are purely typographical due to imperfections of the software programs, and do not reflect any compromise in the patient's medical care. TIP DE LEÓN MD Apr 09, 2025 11:56
[2025-04-09] MEDS ORDERED: AML5T PO ×2 (11:59→19:46)
--- NOTE | 2025-04-09 12:00 | DVHDS2 ---
Discharge Summary Date of Admission Apr 07, 2025 at 22:05 Date of Discharge: Apr 09, 2025 Admitting Diagnosis Uncontrolled diabetes mellitus with hyperglycemia Non ST-elevation [place] secondary to Demand ischemia Elevated troponin Coronary artery disease with recent history of cardiac catheterization at [facility] a week ago. Labs/Diagnostic Data: Laboratory Results Test 04/09/25 04:35 04/08/25 04:29 04/08/25 03:00 04/08/25 00:42 White Blood Count 5.5 10^3/uL (4.4-10.8) Red Blood Count 4.25 10^6/uL (4.0-5.20) Hemoglobin 12.5 g/dL (12.2-16.2) Hematocrit 36.2 % (36.0-46.0) Mean Corpuscular Volume 85.1 fL (80.0-100.0) Mean Corpuscular Hemoglobin 29.3 pg (28.0-32.0) Mean Corpuscular Hemoglobin Concent 34.4 g/dL (32.0-36.0) Red Cell Distribution Width 13.1 % (11.8-14.3) Platelet Count 245 10^3/uL (140-450) Mean Platelet Volume 9.0 fL (6.9-10.8) Neutrophils (%) (Auto) 50.2 % (37.0-80.0) Lymphocytes (%) (Auto) 40.4 % (10.0-50.0) Monocytes (%) (Auto) 6.7 % (0.0-12.0) Eosinophils (%) (Auto) 2.1 % (0.0-7.0) Basophils (%) (Auto) 0.6 % (0.0-2.0) Neutrophils # (Auto) 2.7 10 ^3/uL (1.6-8.6) Lymphocytes # (Auto) 2.2 10 ^3/uL (0.4-5.4) Monocytes # (Auto) 0.4 10 ^3/uL (0-1.3) Eosinophils # (Auto) 0.1 10 ^3/uL (0-0.8) Basophils # (Auto) 0 10 ^3/uL (0-0.2) Nucleated Red Blood Cells 0.0 % Sodium Level 141 mmol/L (136-145) Potassium Level 4.5 mmol/L (3.5-5.1) Chloride Level 107 mmol/L (98-107) Carbon Dioxide Level 27 mmol/L (20-31) Anion Gap 7 (5-15) Blood Urea Nitrogen 9 mg/dL (9-23) Creatinine 0.82 mg/dL (0.550-1.02) Glomerular Filtration Rate Calc 79 mL/min (>90) BUN/Creatinine Ratio 11.0 (10.0-20.0) Serum Glucose 98 mg/dL (74-106) Calcium Level 9.6 mg/dL (8.7-10.4) Total Bilirubin 0.4 mg/dL (0.2-1.0) Aspartate Amino Transferase (AST) 17 U/L (13-40) Alanine Aminotransferase (ALT) 18 U/L (7-40) Alkaline Phosphatase 60 U/L (46-116) Total Protein 6.7 g/dL (5.7-8.2) Albumin 4.1 g/dL (3.2-4.8) Hepatitis B Surface Antigen Negative (Negative) Hepatitis C Antibody Negative (Negative) Urine Color Light-yellow (Yellow) Urine Clarity Clear (Clear) Urine pH 6.0 (5.0-9.0) Urine Specific [place] 1.017 (1.001-1.035) Urine Protein Negative (Negative) Urine Ketones Negative (Negative) Urine Blood 1+ /uL (Negative) Urine Nitrite Negative (Negative) Urine Bilirubin Negative (Negative) Urine Urobilinogen Normal mg/dL (Negative) Urine Leukocyte Esterase Negative /uL (Negative) Urine RBC 10 /hpf (0 - 4) Urine Microscopic WBC 11 /HPF (0-5) Urine Squamous Epithelial Cells Few /hpf (<5) Urine Bacteria None seen /hpf (None Seen) Urine Glucose Normal mg/dL (Normal) Troponin I High Sensitivity 161 ng/L (</=34) Test 04/07/25 14:27 04/07/25 13:03 POC Glucose 150 mg/dl (70-106) Hemoglobin A1c 5.9 % A1C (<5.7) Other Laboratory Tests 04/09/25 04:35 Brief Hx & Hospital Course: This is a 64 years old female with past medical history of hypertension, hyperlipidemia, history coronary artery disease status post full workup at [facility] or [facility] for angiogram. The patient has started having chest discomfort thing come to hospital for further evaluation. Patient was found to have elevation of troponin level 172. Troponin level trending up. The patient was admitted. Workup was done. Cardiology see the patient and recommend no further intervention since patient just recently had a clean angiogram without any blockage. Recommend 2D echo. 2D echo showed EF of 65%. The patient's chest pain improved. The son discuss with me regarding to her chest pain. He thinks part of it is panic attack when she had this kind of discomfort. He also said that she was playing volleyball with him and started having muscle pain on the chest which later on did not resolved. I will give the patient Ativan 0.5 mg p.o. twice per day PRN for anxiety. Also advised him to give her ibuprofen [id number] as needed for her muscle chest wall pain. I am going to discharge the patient home today. Activity as tolerated. Diet per home diet. Follow up with primary care physician 1-2 weeks. Follow up with skip load driver per schedule. Physical exam: HEENT: Normocephalic atraumatic pupils equal react to light and accommodation. Extraocular muscles intact, conjunctiva pink, oropharynx moist, no thrush, no exudate. Lymphatic: No lymphadenopathy Cardiovascular exam: S1, S2 was heard. No murmurs, rubs, gallops Lung: Clear on auscultation bilaterally, no wheeze, rale, rhonchi. GI: Abdominal soft, nondistended, nontenderness, positive bowel sounds. Extremity: No crepitus, cyanosis, edema. Pedal pulses present bilateral. Full range of motion. Skin: Normal turgor, no rash. Psych: Alert, oriented x3. Neurology: No focal deficits, cranial nerve II to XII grossly intact. This medical document was created using an electronic medical record system with [employer] direct computerized dictation system. Although this document has been carefully reviewed, there may still be some phonetic and typographical errors. These areas are purely typographical due to imperfections of the software programs, and do not reflect any compromise in the patient's medical care. Condition at Discharge: Stable Final Diagnosis/Problems List Uncontrolled diabetes mellitus with hyperglycemia Non ST-elevation MO secondary to Demand ischemia Elevated troponin Coronary artery disease with recent history of cardiac catheterization at [facility] a week ago. Discharge Disposition: Home Discharge Instruct/Medications Diet: Cardiac 2g Na,low cholest Activity: No Restrictions, As Tolerated Follow Up/Referral: pcp 1-2 weeks Medications: see med list Scheduled Amlodipine Besylate (Norvasc Tablet), 5 MG PO DAILY Amlodipine Besylate (Norvasc Tablet), 1 TAB PO DAILY Aspirin (Aspirin 81 Low Dose), 81 MG PO DAILY, (Reported) Atorvastatin Calcium (Atorvastatin Calcium), 40 TAB PO DAILY, (Reported) Scheduled PRN Lorazepam (Ativan), 1 TAB PO Q8HPRN PRN Lorazepam (Ativan), 1 TAB PO BIDP PRN Discontinued Medications Amlodipine Besylate (Amlodipine Besylate), 2.5 MG PO DAILY, (Reported) Discharge Statement: "Patient was advised to return to the ER or call 911 if any headaches, dizziness, shortness of breath, chest pain, abdominal pain, bleeding, fevers, or worsening of medical condition. Patient was counseled about treatment plan, medications, possible side effects, patientverbalized understanding. All questions were answered to the best of my ability. This discharge took greater then 30 minutes in planning, reviewing documentation, counseling the patient, and discussing with other team members." ASSESSMENT ASSESSMENT Assessment chest pain Date of Service: Apr 09, 2025 Billing Provider: TIP DE LEÓN MD Common Visit Codes: 49452-FAU/OBS DISCH DAY >30min TIP DE LEÓN MD Apr 09, 2025 12:00
[2025-04-09] MEDS ORDERED: LORA-655 PO ×2 (12:50→19:46)
--- NOTE | 2025-04-09 13:45 | ECG ---
[facility] Test Date: 2025-04-07 Test Time: 12:26:58 Pat Name: MER GRIMALDO Department: Room: 0201T A Gender: F Supervisor Backfilling: PERLA : 1960 Requested By: AJAY MCDOWELL Order Number: [id number] Reading MD: Jesus Michaud Measurements Intervals [place] Rate: 72 P: 59 OK: 197 QRS: 50 QRSD: 98 T: 95 QT: 373 QTc: 409 Interpretive Statements Sinus rhythm Nonspecific T abnrm, anterolateral leads Electronically Signed On 04-09-2025 14:25:07 PDT by Jesus Michaud Please click the below link to view image of tracing.
--- NOTE | 2025-04-09 23:04 | DVHPN2 ---
Progress Note - Dictate Date Seen: Apr 09, 2025 Medical Necessity Reason Pt with a Central, PICC or Fol: No Subjective Patient was seen and evaluated in follow up. No overnight events. Patient reports feeling well today. Echocardiogram shows an EF of 65%. Patient is cardiac stable for discharge. Telemetry reviewed. vital signs Vital Sign Date Time Temp Pulse Resp B/P (MAP) Pulse Ox O2 Delivery O2 Flow Rate FiO2 04/09/25 09:00 98.3 66 16 127/59 (81) 96 98.3 04/09/25 08:00 Room Air* 0 21 Total Intake and Output 04/08/25 04/08/25 04/09/25 15:00 23:00 07:00 Intake Total 650 ml 500 ml Balance 650 ml 500 ml objective GENERAL: Alert and oriented x 3. No acute distress. EYES: PERRL, EOMI. Anicteric. HENT: Moist mucous membranes. LUNGS: Clear to auscultation bilaterally. CARDIOVASCULAR: Regular rate and rhythm. ABDOMEN: Soft, nontender and nondistended. EXTREMITIES: No edema. NEUROLOGIC: No focal neurological deficits. SKIN: Warm, dry. laboratory and microbiology Laboratory Tests 04/09/25 04:35 Test 04/09/25 04:35 Range/Units Serum Glucose 98 74-106 mg/dL Problem List Chest pain. HTN. HLD. Assessment/Plan Continued all current supportive medical care. Aspirin and statin. Continue home dose Amlodipine. DVT prophylactics. IV Hydralazine for SBP > 150. Morphine and [place] for pain management. Additional plan as per the hospital course. Plan discussed with: Patient SNOW MOSS MD Apr 09, 2025 23:04
== END 2025-04-09 14:15 | disposition home or self-care (01) | DRG 190 ==
LOC: ER 12:25 → EDBD 12:25 → OVERFLOW 22:05 → TELE-CENTR 23:52
PROVIDERS: ADMIT Internal Medicine; ATTEND Internal Medicine
DX: I25.10 Atherosclerotic heart disease of native coronary artery without angina pectoris (principal); I21.A1 Myocardial infarction type 2; E11.65 Type 2 diabetes mellitus with hyperglycemia; E78.5 Hyperlipidemia, unspecified; I10 Essential (primary) hypertension; F41.0 Panic disorder [episodic paroxysmal anxiety]; Z79.82 Long term (current) use of aspirin; Z79.899 Other long term (current) drug therapy
CPT/HCPCS: 36415; 80048; 80053; 81001; 82962; 83036; 84484; 85025; 86803; 87081; 87340; 93005; 93306; 96360; 96372; 99291; G0378